=== PATIENT | female | born 1985 | race Caucasian/White ===

== ENCOUNTER 2016-08-14 11:04 | Emergency (ER) | payer MEDICARE | END 2016-08-14 11:35 | disposition home or self-care (01) | LOC: BURERS 11:04 | DX: M75.92 Shoulder lesion, unspecified, left shoulder (principal); E03.9 Hypothyroidism, unspecified; F32.9 Major depressive disorder, single episode, unspecified; F41.9 Anxiety disorder, unspecified; Z79.899 Other long term (current) drug therapy | CPT/HCPCS: 99283 ==

== ENCOUNTER 2016-12-29 12:42 | Emergency (ER) | payer MEDICARE ==
[2016-12-29 13:06] LABS: #Basophils 0.1 thou/uL (0.0-0.2); #Eosinphils 0.2 thou/uL (0.0-0.7); #Lymphocytes 1.8 thou/uL (1.20-3.40); #Monocytes 0.5 thou/uL (0.11-0.59); #Neutrophils 3.8 thou/uL (1.40-6.50); %Basophils 1.6 % (0.0-1.0); %Lymphocytes 28.4 % (21.0-51.0); %Monocytes 8.3 % (0.0-10.0); %Neutrophils 58.8 % (42.0-75.0); Hemoglobin 14.3 g/dL (12.0-16.0); Mean Corpuscular HGB CONC 32.9 g/dL (32.0-36.0); Mean Corpuscular Hemoglobin 29.4 pg (27.0-31.0); Mean Corpuscular Volume 89.2 fl (81.0-99.0); Mean Platelet Volume 8.1 fL (7.4-10.4); Platelet Count 281 thou/uL (130-400); RBC Distribution Width 12.4 % (11.5-14.5); Red Blood Cell (RBC) Count 4.87 mill/uL (4.20-5.40); White Blood Cell (WBC) Count 6.5 thou/uL (4.8-10.8)
[2016-12-29 13:27] LABS: ALT (SGPT) 17 U/L (8-55); AST (SGOT) 20 U/L (5-34); Albumin 4.6 g/dL (3.5-5.0); Alkaline Phosphatase 56 U/L (40-150); Anion Gap 12 mmol/L (10-20); BUN (Urea Nitrogen) 10 mg/dL (7.0-18.7); Bilirubin, Total 0.5 mg/dL (0.2-1.2); Calc. Creatinine Clearance 0 mL/min (70-130); Calcium 9.9 mg/dL (7.8-10.44); Carbon Dioxide 21 mmol/L (22-29); Chloride 112 mmol/L (98-107); Estimated GFR-MDRD 89; Globulin 3.7 g/dL (2.4-3.5); Glucose 92 mg/dL (70-105); Potassium 3.9 mmol/L (3.5-5.1); Protein, Total 8.3 g/dL (6.0-8.3); Sodium 141 mmol/L (136-145)
[2016-12-29] MEDS ORDERED: Fentanyl 100 MCG/2 ML VIAL ONE (13:48)
[2016-12-29] MEDS ORDERED: Ketorolac Tromethamine 30 MG/ML VIAL ONE (13:49)
--- NOTE | 2016-12-29 14:13 | CT ---
NONCONTRAST HEAD CT: Comparison: 03-31-16 History: History of epilepsy and neurological disease. Patient fell down a flight of stairs. Technique: Noncontrast head CT is performed from the skull base to the skull vertex. FINDINGS: No parenchymal hemorrhage. No extraaxial hematoma. No midline shift. Basilar cisterns are patent. Br ain volume is age appropriate. Cortical poe white matter differentiation is preserved. Ventricles and sulci are patent and symmetric. Calvarium is intact. Adequate aeration of the sinuses and mastoid air cells. IMPRESSION: No intracranial post-traumatic sequellae. POS: [facility]
[2016-12-29 14:17] LABS: Bilirubin Negative (Negative); Blood, Urine Negative (Negative); Clarity Clear (Clear); Glucose, Urine (Dipstick) Negative (Negative); Leukocyte Negative (Negative); Nitrite Negative (Negative); Protein, Urine (Dipstick) Negative (Neg-Trace); Urobilinogen 0.2 mg/dL (0.2-1.0)
--- NOTE | 2016-12-29 14:26 | CT ---
CERVICAL SPINE CT NONCONTRAST: Indication: Trauma with neck injury, pain. Comparison: 04-21-14 FINDINGS: There is accentuation of cervical lordosis without evidence of compression fracture or significant s ubluxation. The craniocervical junction is intact. No retropulsion of bone into the vertebral canal. IMPRESSION: No evidence of an acute osseous abnormality within the cervical spine. POS: [facility]
--- NOTE | 2016-12-29 14:43 | RAD ---
RIGHT SHOULDER THREE VIEWS: Indication: Injury, pain. FINDINGS: There is no fracture or dislocation. The right AC joint is maintained. IMPRESSION: No acute fracture of the right shoulder. POS: [facility]
--- NOTE | 2016-12-29 14:43 | RAD ---
TWO VIEW CHEST: Indication: Injury. FINDINGS: Lungs are clear. No effusion or pneumothorax is seen. Cardiac silhouette is within normal limits of size. Hardware is seen at the lumbar spine. IMPRESSION: No focal consolidation. POS: [facility]
--- NOTE | 2016-12-29 14:44 | RAD ---
FOUR VIEWS RIGHT ELBOW: Indication: Injury, pain. FINDINGS: No fracture or dislocation. No joint capsular distention. IMPRESSION: No acute osseous abnormality of the right elbow. POS: [facility]
== END 2016-12-29 14:26 | disposition home or self-care (01) ==
LOC: BURERS 12:42
DX: S00.83XA Contusion of other part of head, initial encounter (principal); S40.011A Contusion of right shoulder, initial encounter; S20.222A Contusion of left back wall of thorax, initial encounter; I95.9 Hypotension, unspecified; G43.909 Migraine, unspecified, not intractable, without status migrainosus; E03.9 Hypothyroidism, unspecified; E27.1 Primary adrenocortical insufficiency; F41.9 Anxiety disorder, unspecified; F32.9 Major depressive disorder, single episode, unspecified; Z79.899 Other long term (current) drug therapy; W10.9XXA Fall (on) (from) unspecified stairs and steps, initial encounter
CPT/HCPCS: 70450; 71020; 72125; 80053; 81003; 85025; 96374; 96375; J1885; J3010

== ENCOUNTER 2017-01-21 13:58 | Emergency (ER) | payer MEDICARE ==
[2017-01-21] MEDS ORDERED: Lorazepam 2 MG/ML VIAL ONE (14:33)
== END 2017-01-21 15:30 | disposition home or self-care (01) ==
LOC: BURERS 14:01
DX: G40.909 Epilepsy, unspecified, not intractable, without status epilepticus (principal); E03.9 Hypothyroidism, unspecified; G43.909 Migraine, unspecified, not intractable, without status migrainosus; I95.89 Other hypotension; E27.1 Primary adrenocortical insufficiency; F41.9 Anxiety disorder, unspecified; F32.9 Major depressive disorder, single episode, unspecified; Z79.899 Other long term (current) drug therapy
CPT/HCPCS: 96374; J2060

== ENCOUNTER 2017-05-02 03:08 | Emergency (ER) | payer MEDICARE ==
[2017-05-02 03:40] LABS: Bilirubin Negative (Negative); Blood, Urine Trace (Negative); Clarity Clear (Clear); Glucose, Urine (Dipstick) Negative (Negative); Leukocyte Negative (Negative); Nitrite Negative (Negative); Protein, Urine (Dipstick) Negative (Neg-Trace); Specific Gravity, Urine 1.021 (1.002-1.036); Urobilinogen 0.2 mg/dL (0.2-1.0)
[2017-05-02 03:41] LABS: Pregnancy Test - Urine (BHCG) Negative (Negative); Pregu Control Background? CLEAR/WHITE (CLR/WHITE); Pregu Control Bar Appear? YES (CONTROL BAR); Specific Gravity 1.021 (1.002-1.036)
[2017-05-02 03:45] LABS: Bacteria/HPF 1+ HPF (None Seen); Squamous Epithelial 0-3 HPF (0-3)
[2017-05-02] MEDS ORDERED: Ondansetron ODT 4 MG TAB ONE ×3 (03:48→03:51)
[2017-05-02] MEDS ORDERED: Ketorolac Tromethamine 60 MG/2 ML VIAL ONE (03:48)
[2017-05-02] MEDS ORDERED: Acetaminophen/Codeine 30-300mg Tablet ONE (04:05)
[2017-05-02] MEDS ORDERED: Cephalexin 250 MG CAP ONE (04:05)
== END 2017-05-02 04:20 | disposition home or self-care (01) ==
LOC: BURERS 03:08
DX: N39.0 Urinary tract infection, site not specified (principal); N20.0 Calculus of kidney; G40.909 Epilepsy, unspecified, not intractable, without status epilepticus; E03.9 Hypothyroidism, unspecified; G43.909 Migraine, unspecified, not intractable, without status migrainosus; E27.1 Primary adrenocortical insufficiency; F41.9 Anxiety disorder, unspecified; F32.9 Major depressive disorder, single episode, unspecified; Z79.899 Other long term (current) drug therapy
CPT/HCPCS: 81003; 81015; 81025; 96372; J1885; Q0162